=== PATIENT | female | born 1940 | race Caucasian/White ===

== ENCOUNTER 2016-08-21 12:34 | Emergency (ER) | payer OTHER, MEDICARE ==
[~2016-08-21] VITALS: Ht 149.9 cm; Wt 81.0 kg
[~2016-08-21 12:34] MED LIST: AMBIEN10 MG; CATAPRES0.1 MG; DYAZIDE, MA1 CAPSULE PO; FLEXERIL10 MG PO; IMODIUM MS REL1 EACH PO; LEXAPRO20 MG PO; MILK OF MAGN PO; PEPTO BISMOL262 MG PO; PRILOSEC20 MG PO; PRILOSEC40 MG PO; PROPRANOLOL HCL40 MG PO; TYLENOL REGULA325 MG PO; ZYRTEC10 M2 PO
[2016-08-21 13:34] LABS: ADD MIUA? NO; BILIRUBIN NEGATIVE; BLOOD NEGATIVE; COLOR YELLOW ((YELLOW)); GLUCOSE (STRIP) NEGATIVE; KETONES NEGATIVE; LEUKOCYTES NEGATIVE; NITRITE NEGATIVE; PROTEIN (STRIP) NEGATIVE; SPECIFIC GRAVITY 1.013 (1.000-1.030); UCUL ADDED? NO; UROBILINOGEN 0.2 MG/DL (0.2-1.0)
[2016-08-21 13:59] LABS: BASOPHIL COUNT 0.1 K/uL (0-0.1); EOSINOPHIL (%) 3.5 % (0-5); EOSINOPHIL COUNT 0.4 K/uL (0-0.3); IMMATURE GRANULOCYTE (%) 0.8 % (0.0-0.7); IMMATURE GRANULOCYTE COUNT 0.1 K/uL; INSTRUMENT ABS NEUTROPHIL CT 6.7 K/uL; LYMPHOCYTE COUNT 2.1 K/uL (1.0-2.8); MCH 28.6 PG (29.0-34.0); MCHC 32.5 G/DL (30.0-36.0); MCV 87.9 FL (83-99); MONOCYTE (%) 7.1 % (3-12); MONOCYTE COUNT 0.7 K/uL (0-0.8); NEUTROPHIL (%) 67.3 % (45-76); NEUTROPHIL COUNT 6.7 K/uL (1.8-6.4); PLATELET COUNT 343 K/uL (156-360); RBC DIS.WIDTH-CV 14.6 % (11.8-14.6); RBC DIS.WIDTH-SD 47.4 % (39-53); RED BLOOD COUNT 4.55 M/uL (3.80-5.20); WHITE BLOOD COUNT 9.9 K/uL (4.1-10.2)
[2016-08-21 14:09] LABS: CHLORIDE 102 mEq/L (99-109); POTASSIUM 4.1 mEq/L (3.7-5.4); SODIUM 139 mEq/L (136-147)
[2016-08-21 14:10] LABS: GLUCOSE 97 mg/dL (70-99); PROTHROMBIN TIME 9.9 (9.2-11.2); PTT 25.5 (25-32)
[2016-08-21 14:12] LABS: ANION GAP 12 MEQ/L (2-14)
[2016-08-21 14:14] LABS: GFR ESTIMATE (CALCULATED) > 59 mL/min/
[2016-08-21 14:15] LABS: UREA NITROGEN (BUN) 11 mg/dL (9-23)
[2016-08-21 14:19] LABS: TROP-I INTERPRETATION NEGATIVE; TROPONIN-I < 0.01 ng/mL (0.0-0.30)
[2016-08-21 16:15] VITALS: BP 133/46
== END 2016-08-21 16:20 | disposition home or self-care (01) ==
LOC: EME 12:34
PROVIDERS: Emergency Medicine
DX: S09.90XA Unspecified injury of head, initial encounter (principal); W01.0XXA Fall on same level from slipping, tripping and stumbling without subsequent striking against object, initial encounter; Y92.002 Bathroom of unspecified non-institutional (private) residence as the place of occurrence of the external cause; R05 Cough; I10 Essential (primary) hypertension; Z86.73 Personal history of transient ischemic attack (TIA), and cerebral infarction without residual deficits
CPT/HCPCS: 70450; 71020; 80048; 81003; 84484; 85025; 85610; 85730; 93005; 99281; 99285; J7030